=== PATIENT | female | born 1940 ===

== ENCOUNTER 2023-04-27 10:25 | Inpatient (IN) | payer MEDICARE, BC ==
[2023-04-27] MEDS ORDERED: Bisacodyl 5 MG Tab PO PRN (13:45)
[2023-04-27] MEDS ORDERED: Acetaminophen 325 MG Tab PO PRN (13:45)
[2023-04-27] MEDS ORDERED: Ondansetron 4 MG/2 ML SDV IVPUSH PRN (13:45)
[2023-04-27] MEDS ORDERED: Acetaminophen/HYDROcodone 325-5 MG Tab PO PRN (13:45)
[2023-04-27] MEDS ORDERED: Docusate Sodium 100 MG Cap PO PRN (13:45)
[2023-04-27] MEDS ORDERED: Nitroglycerin 0.4 MG Tab.SL SL PRN (14:00)
[2023-04-27] MEDS ORDERED: Albuterol 6.7 GM Inhaler INH PRN (14:00)
[2023-04-27] MEDS: Azithromycin 250 MG Tab PO SCH (14:46)
[2023-04-27] MEDS: Ferrous Sulfate 325 MG Tab PO SCH (14:46)
[2023-04-27] MEDS: Albuterol 0.083% 2.5 MG/3 ML Neb Soln INH SCH (17:42)
[2023-04-27] MEDS ORDERED: Ipratropium 0.02% 0.5 MG/2.5 ML Neb Soln INH SCH (18:00)
[2023-04-27] MEDS: Potassium Chloride 10 MEQ Tab.ER PO SCH (20:56)
[2023-04-27] MEDS ORDERED: [UNRECOGNIZED DRUG - OTHER] TP SCH (21:00)
[2023-04-27] MEDS ORDERED: Potassium Chloride 10 MEQ Tab.ER PO SCH (21:00)
[2023-04-27] MEDS ORDERED: Rosuvastatin 10 MG Tab PO SCH (21:00)
[2023-04-27] MEDS ORDERED: PETROLATUM WHITE TP SCH (21:00)
[2023-04-27] MEDS ORDERED: Formoterol/Mometasone 200-5 MCG 8.8 GM Inhaler IH SCH (21:00)
[2023-04-27] MEDS ORDERED: Sennosides/Docusate Sodium 50-8.6 MG Tab PO SCH (21:00)
[2023-04-27] MEDS: Rosuvastatin 10 MG Tab PO SCH (21:05)
[2023-04-27] MEDS: Formoterol/Mometasone 200-5 MCG 8.8 GM Inhaler IH SCH (21:05)
[2023-04-28] MEDS ORDERED: Pantoprazole 40 MG Tab.CR PO SCH (06:00)
[2023-04-28] MEDS: Albuterol 0.083% 2.5 MG/3 ML Neb Soln INH SCH ×3 (06:09→17:24)
[2023-04-28] MEDS: Formoterol/Mometasone 200-5 MCG 8.8 GM Inhaler IH SCH ×4 (06:10→17:23)
[2023-04-28] MEDS: Tiotropium Bromide 4 GM Inhalation Spray (2.5mcg/1 dose; 10 doses) INH SCH (06:11)
[2023-04-28] MEDS: Calcium Carbonate/Vitamin D3 1250 MG-5 MCG Tab PO SCH (08:17)
[2023-04-28] MEDS: Multivitamin Tab PO SCH (08:17)
[2023-04-28] MEDS: Omeprazole 20 MG Cap.CR PO SCH (08:18)
[2023-04-28] MEDS: Furosemide 20 MG Tab PO SCH (08:18)
[2023-04-28] MEDS: Potassium Chloride 10 MEQ Tab.ER PO SCH ×2 (08:21→17:17)
[2023-04-28] MEDS: FLUoxetine 10 MG Cap PO SCH (08:21)
[2023-04-28] MEDS ORDERED: Sennosides/Docusate Sodium 50-8.6 MG Tab PO PRN (08:37)
[2023-04-28] MEDS ORDERED: Tiotropium Bromide 4 GM Inhalation Spray (2.5mcg/1 dose; 10 doses) INH SCH (09:00)
[2023-04-28] MEDS ORDERED: Sennosides/Docusate Sodium 50-8.6 MG Tab PO SCH (09:00)
[2023-04-28] MEDS ORDERED: Aspirin 81 MG Tab.EC PO SCH (09:00)
[2023-04-28] MEDS ORDERED: Non-Formulary Medication 1 Each (Tiotropium [Spiriva Handihaler] 18 MCG Cap) INH SCH (09:00)
[2023-04-28] MEDS: Rosuvastatin 10 MG Tab PO SCH (17:17)
[2023-04-29] MEDS: Albuterol 0.083% 2.5 MG/3 ML Neb Soln INH SCH ×3 (06:21→17:00)
[2023-04-29] MEDS: Formoterol/Mometasone 200-5 MCG 8.8 GM Inhaler IH SCH ×3 (06:23→17:00)
[2023-04-29] MEDS: Tiotropium Bromide 4 GM Inhalation Spray (2.5mcg/1 dose; 10 doses) INH SCH (06:23)
[2023-04-29] MEDS: FLUoxetine 10 MG Cap PO SCH (09:12)
[2023-04-29] MEDS: Omeprazole 20 MG Cap.CR PO SCH (09:12)
[2023-04-29] MEDS: Calcium Carbonate/Vitamin D3 1250 MG-5 MCG Tab PO SCH (09:13)
[2023-04-29] MEDS: Furosemide 20 MG Tab PO SCH (09:15)
[2023-04-29] MEDS: Potassium Chloride 10 MEQ Tab.ER PO SCH ×2 (09:15→17:56)
[2023-04-29] MEDS: Multivitamin Tab PO SCH (09:15)
[2023-04-29] MEDS: Ferrous Sulfate 325 MG Tab PO SCH (15:00)
[2023-04-29] MEDS: Rosuvastatin 10 MG Tab PO SCH (17:56)
[2023-04-30 05:22] LABS: BASOPHILS PERCENT AUTO 0.5 % (0.0-1.0); EOSINOPHILS PERCENT AUTO 2.6 % (1.0-3.0); HEMATOCRIT 26.3 % (37.0-47.0); HEMOGLOBIN 8.6 g/dL (12.0-16.0); LYMPHOCYTES PERCENT AUTO 20.6 % (20.5-50.1); MEAN CORPUSCULAR HEMOGLOBIN 30.7 pg (27.0-34.0); MEAN CORPUSCULAR HGB CONC 32.7 g/dL (33.0-35.0); MEAN CORPUSCULAR VOLUME 93.9 fL (80-100); MONOCYTES PERCENT AUTO 9.1 % (2-8); NEUTROPHILS PERCENT AUTO 67.2 % (42.2-75.2); PLATELET COUNT,PLT 287 10^3/uL (150-450); WHITE BLOOD CELL COUNT,WBC 6.5 10^3/uL (5.0-10.0)
[2023-04-30 05:37] LABS: ANION GAP 8.2 mEq/L (7-13); CALCIUM 9.1 mg/dL (8.5-10.1); CREATININE 0.61 mg/dL (0.55-1.02); EST CRCL DRUG DOSING (CG) 50.84 mL/min; POTASSIUM,K 4.2 mmol/L (3.5-5.1)
[2023-04-30] MEDS: Albuterol 0.083% 2.5 MG/3 ML Neb Soln INH SCH ×3 (06:44→17:13)
[2023-04-30] MEDS: Formoterol/Mometasone 200-5 MCG 8.8 GM Inhaler IH SCH ×3 (06:47→17:13)
[2023-04-30] MEDS: Tiotropium Bromide 4 GM Inhalation Spray (2.5mcg/1 dose; 10 doses) INH SCH (06:47)
[2023-04-30] MEDS: FLUoxetine 10 MG Cap PO SCH (08:10)
[2023-04-30] MEDS: Calcium Carbonate/Vitamin D3 1250 MG-5 MCG Tab PO SCH (08:10)
[2023-04-30] MEDS: Omeprazole 20 MG Cap.CR PO SCH (08:11)
[2023-04-30] MEDS: Multivitamin Tab PO SCH (08:11)
[2023-04-30] MEDS: Furosemide 20 MG Tab PO SCH (08:11)
[2023-04-30] MEDS: Potassium Chloride 10 MEQ Tab.ER PO SCH ×2 (08:11→17:17)
[2023-04-30] MEDS ORDERED: ALENDRONATE SODIUM 10 MG PO SCH (09:00)
[2023-04-30] MEDS: BORAGE PO SCH ×3 (10:45→14:51)
[2023-04-30] MEDS: FISH OIL PO SCH ×3 (10:45→14:51)
[2023-04-30] MEDS: FLAX PO SCH ×3 (10:45→14:51)
[2023-04-30] MEDS: [UNRECOGNIZED DRUG - OTHER] PO SCH ×3 (10:45→14:51)
[2023-04-30] MEDS: Non-Formulary Medication 1 Each (Zinc Sulfate [Zinc] 50 MG Tablet) PO SCH ×2 (10:46→14:51)
[2023-04-30] MEDS: Azithromycin 250 MG Tab PO SCH (13:37)
[2023-04-30] MEDS: Rosuvastatin 10 MG Tab PO SCH (17:17)
[2023-05-01] MEDS: Albuterol 0.083% 2.5 MG/3 ML Neb Soln INH SCH ×3 (06:19→17:56)
[2023-05-01] MEDS: Formoterol/Mometasone 200-5 MCG 8.8 GM Inhaler IH SCH ×3 (06:21→17:55)
[2023-05-01] MEDS: Tiotropium Bromide 4 GM Inhalation Spray (2.5mcg/1 dose; 10 doses) INH SCH (06:21)
[2023-05-01] MEDS: Furosemide 20 MG Tab PO SCH (08:17)
[2023-05-01] MEDS: Multivitamin Tab PO SCH (08:17)
[2023-05-01] MEDS: Omeprazole 20 MG Cap.CR PO SCH (08:17)
[2023-05-01] MEDS: FLUoxetine 10 MG Cap PO SCH (08:17)
[2023-05-01] MEDS: Calcium Carbonate/Vitamin D3 1250 MG-5 MCG Tab PO SCH (08:17)
[2023-05-01] MEDS: Potassium Chloride 10 MEQ Tab.ER PO SCH ×2 (08:17→17:25)
[2023-05-01] MEDS: Ferrous Sulfate 325 MG Tab PO SCH (13:04)
[2023-05-01] MEDS: Rosuvastatin 10 MG Tab PO SCH (17:25)
[2023-05-02] MEDS: Albuterol 0.083% 2.5 MG/3 ML Neb Soln INH SCH ×2 (05:52→16:58)
[2023-05-02] MEDS: Formoterol/Mometasone 200-5 MCG 8.8 GM Inhaler IH SCH ×2 (05:54→16:59)
[2023-05-02] MEDS: Tiotropium Bromide 4 GM Inhalation Spray (2.5mcg/1 dose; 10 doses) INH SCH (05:54)
[2023-05-02] MEDS: FLUoxetine 10 MG Cap PO SCH (08:52)
[2023-05-02] MEDS: Multivitamin Tab PO SCH (08:52)
[2023-05-02] MEDS: Omeprazole 20 MG Cap.CR PO SCH (08:52)
[2023-05-02] MEDS: Potassium Chloride 10 MEQ Tab.ER PO SCH ×2 (08:52→18:30)
[2023-05-02] MEDS: Furosemide 20 MG Tab PO SCH (08:52)
[2023-05-02] MEDS: Calcium Carbonate/Vitamin D3 1250 MG-5 MCG Tab PO SCH (08:52)
[2023-05-02] MEDS: Azithromycin 250 MG Tab PO SCH (14:42)
[2023-05-02] MEDS: Rosuvastatin 10 MG Tab PO SCH (18:30)
[2023-05-03] MEDS ORDERED: Omeprazole 20 MG Cap.CR PO SCH (06:00)
[2023-05-03] MEDS: Formoterol/Mometasone 200-5 MCG 8.8 GM Inhaler IH SCH (06:07)
[2023-05-03] MEDS: Albuterol 0.083% 2.5 MG/3 ML Neb Soln INH SCH ×2 (06:07→07:47)
[2023-05-03] MEDS: Tiotropium Bromide 4 GM Inhalation Spray (2.5mcg/1 dose; 10 doses) INH SCH (06:07)
[2023-05-03] MEDS: Potassium Chloride 10 MEQ Tab.ER PO SCH (09:18)
[2023-05-03] MEDS: Calcium Carbonate/Vitamin D3 1250 MG-5 MCG Tab PO SCH (09:18)
[2023-05-03] MEDS: FLUoxetine 10 MG Cap PO SCH (09:18)
[2023-05-03] MEDS: Multivitamin Tab PO SCH (09:19)
[2023-05-03] MEDS: Furosemide 20 MG Tab PO SCH (09:19)
== END 2023-05-03 10:57 | disposition home or self-care (01) | DRG 948 ==
LOC: DL.MS 12:14
PROVIDERS: ADMIT Internal Medicine; ATTEND Internal Medicine
DX: R53.81 Other malaise (principal); I50.32 Chronic diastolic (congestive) heart failure; J96.11 Chronic respiratory failure with hypoxia; G93.49 Other encephalopathy; E78.5 Hyperlipidemia, unspecified; R53.1 Weakness; I11.0 Hypertensive heart disease with heart failure; K21.9 Gastro-esophageal reflux disease without esophagitis; D50.9 Iron deficiency anemia, unspecified; J44.9 Chronic obstructive pulmonary disease, unspecified; F32.A Depression, unspecified; M81.0 Age-related osteoporosis without current pathological fracture; I25.10 Atherosclerotic heart disease of native coronary artery without angina pectoris; Z79.82 Long term (current) use of aspirin; Z79.899 Other long term (current) drug therapy; Z88.2 Allergy status to sulfonamides; Z88.8 Allergy status to other drugs, medicaments and biological substances; Z91.018 Allergy to other foods
CPT/HCPCS: 36415; 73600-RT; 73700-RT; 80048; 85025; 94010; 94060; 94640; 94667; 94668; 94760; 97110-GP; 97116-GP; 97161-GP; 97165-GO; 97530-GO; 97530-GP; 97535-GO; 99309; 99315; A9270-GY; J7613-GY

== ENCOUNTER 2023-07-27 11:31 | Emergency (ER) | payer MEDICARE, BC ==
[2023-07-27] MEDS ORDERED: EPINEPHrine 1:10,000 1 MG/10 ML Syringe IV ONE (11:32)
[2023-07-27] MEDS ORDERED: Sodium Bicarbonate 8.4% 50 MEQ/50 ML Syringe IV ONE (11:32)
== END 2023-07-27 14:34 | disposition expired ==
LOC: DL.ED 11:31
DX: R09.2 Respiratory arrest (principal); J44.9 Chronic obstructive pulmonary disease, unspecified; Z79.82 Long term (current) use of aspirin; Z79.899 Other long term (current) drug therapy; Z88.2 Allergy status to sulfonamides; Z88.8 Allergy status to other drugs, medicaments and biological substances; Z91.018 Allergy to other foods
CPT/HCPCS: 92950; 99285; J0171; J3490